=== PATIENT | male | born 1950 | race Two or more races ===

== ENCOUNTER → 2017-01-25 | Day surgery (SDC) | payer MEDICARE, MEDICAID ==
[~2017-01-25] VITALS: Ht 167.6 cm; Wt 93.0 kg
[2017-01-25] VITALS (9 sets, daily range): BP systolic 153–189; BP diastolic 85–103
[~2017-01-25] MED LIST: ASPIRIN81 MG ORAL; Atropine Inj 1mg/10ml Syr IV PRN; Bacitracin 50000 Units Vial ONE; DiphenhydrAMINE 50mg/ml Inj IVP PRN; Glycopyrrolate 0.2mg/ml 1ml Vial ONE; Hydromorphone 0.5mg/0.5ml inj IVP PRN; JANUMET 50-1,01 EACH ORAL; Ketamine 500mg Inj ONE; Ketorolac 30mg Inj IV PRN; Ketorolac 30mg Inj ONE; Ketorolac 60mg Inj IV PRN; LANTUS SOL100 UNIT/1 SUBQ; LORazepam Inj 2mg/ml 1ml IV PRN; LR 1000ml 1,000 ML IVLG SCH; LR 1000ml ONE; Labetalol 5mg/ml 20ml vial IV ONE; Labetalol 5mg/ml 20ml vial IV PRN; Lidocaine 1% MPF 10mg/ml 5ml ONE; Meperidine 25mg/ml Inj IV PRN; Metoclopramide 10mg/2ml Inj IVP PRN; Metoprolol 5mg/5ml Inj ONE; Midazolam 2mg/2ml Inj IVP PRN; Midazolam 2mg/2ml Inj ONE; NEXIUM40 M2 ORAL; NIFEDIPINE ER30 M2 ORAL; NS Irrig 1000ml ONE; Neostigmine 1mg/ml 10ml Inj ONE; Norco 5mg/325mg tab ORAL PRN; Norco 7.5mg/325mg tab ORAL PRN; Oxycodone/Acetaminophen 5-325 ORAL PRN; PROPRANOLOL HCL40 MG ORAL; Propofol 10mg/ml 20ml IV ONE; Sterile Water Irrig 1000ml IRRIG ONE; Vancomycin 1gm inj IVPB ONE; Zemuron 50mg/5ml Inj IV ONE; fentaNYL 100 mcg/2 mL IV PRN; fentaNYL 250mcg/5ml ONE
--- NOTE | 2017-01-25 09:12 | Pre-Procedure Note/Attestation ---
Pre-Procedure Note/Attestation Complete Prior to Procedure Planned Procedure: not applicable Procedure Narrative: placement of multicomponent penile prosthesis Indications for Procedure Pre-Operative Diagnosis: impotence Attestation I attest that I discussed the nature of the procedure; its benefits; risks and complications; and alternatives (and the risks and benefits of such alternatives ), prior to the procedure, with the patient (or the patient's legal tour sales representative). I attest that, if there was a reasonable possibility of needing a blood transfusion, the patient (or the patient's legal tour sales representative) was given the [facility] standardized written summary, pursuant to the Manuel Meena Blood Safety Act ([place] Health and Safety Code # 1645, as amended). I attest that I re-evaluated the patient just prior to the surgery and that there has been no change in the patient's H&P, except as documented below: Jhonny Styles MD Jan 25, 2017 09:11
--- NOTE | 2017-01-25 13:50 | Brief Operative Note ---
Immediate Post Operative Note Operative Note Pre-op Diagnosis: impotence Procedure: IPP Post-op Diagnosis: same Surgeon: Nirmal Styles Anesthesia: general Specimen: none Complications: none Condition: stable Estimated Blood Loss: minimal Implant(s) used?: Yes Jhonny Styles MD Jan 25, 2017 13:50
--- NOTE | 2017-01-25 14:53 | Anethesia Preoperative Eval ---
Anesthesia Pre-op PMH/ROS General Date of Evaluation: Jan 25, 2017 Time of Evaluation: 14:04 Anesthesiologist: Willa ASA Score: ASA 3 Mallampati Score Class I : Soft palate, uvula, fauces, pillars visible Class II: Soft palate, uvula, fauces visible Class III: Soft palate, base of uvula visible Class IV: Only hard plate visible Mallampati Classification: Class II Surgeon: Jensen Diagnosis: Impotence Surgical Procedure: Penile Implant Insertion Anesthesia History: none Family History: no anesthesia problems Allergies: Coded Allergies: No Known Allergies (Unverified , 01/24/17) Medications: see eMAR Past Medical History Cardiovascular: Reports: HTN Neurologic/Psychiatric: Reports: CVA Endocrine: Reports: DM Other: obesity - BMI 33 PSxH Narrative: TURP, Appendectomy Anesthesia Pre-op Phys. Exam Physician Exam Last Vital Signs Date Time Temp Pulse Resp B/P Pulse Ox O2 Delivery O2 Flow Rate FiO2 01/25/17 08:45 98.0 86 18 189/85 96 Room Air Constitutional: NAD Neurologic: CN 2-12 intact Cardiovascular: RRR Respiratory: CTA Gastrointestinal: S/NT/ND Airway Exam Mallampati Score: Class II MO: limited ROM: limited Teeth: intact Anesthesia Pre-op A/P Risk Assessment & Plan Assessment: ASA 3 Plan: GA, BIS, Glidescope Status Change Before Surgery: No Pre-Antibiotics Dru Gram Vancomycin, 80 mg Gentamicin Given Within 1 Hr of Incision: Yes Time Given: 14:16 Milton Crouch MD Jan 25, 2017 14:53
--- NOTE | 2017-01-25 14:56 | Immediate Post-Op Evaluation ---
Immediate Post-Op Evalulation Immediate Post-Op Evalulation Procedure: Insertion Penile Implant Date of Evaluation: Jan 25, 2017 Time of Evaluation: 15:55 IV Fluids: 1000 LR Blood Products: 0 Estimated Blood Loss: 25 Urinary Output: 100 Blood Pressure Systolic: 157 Blood Pressure Diastolic: 103 Pulse Rate: 87 Respiratory Rate: 16 O2 Sat by Pulse Oximetry: 100 Temperature (Fahrenheit): 98.4 Pain Score (1-10): 2 Nausea: No Vomiting: No Complications 0 Patient Status: awake, reacts, patent, extubated, none Hydration Status: adequate Dru Gram Vancomycin, 80 mg Gentamicin IV Given Within 1 Hr of Incision: Yes Time Given: 14:16 Milton Crouch MD Jan 25, 2017 14:56
--- NOTE | 2017-01-25 15:30 | 48 Hour Post Anesthesia Eval ---
Post Anesthesia Evaluation Procedure: Insertion Penile Implant Date of Evaluation: Jan 25, 2017 Time of Evaluation: 15:57 Blood Pressure Systolic: 171 0: 98 Pulse Rate: 78 Respiratory Rate: 18 Temperature (Fahrenheit): 98.6 O2 Sat by Pulse Oximetry: 97 Airway: patent Nausea: No Vomiting: No Pain Intensity: 2 Hydration Status: adequate Cardiopulmonary Status: Stable Mental Status/LOC: patient returned to baseline Follow-up Care/Observations: 0 Post-Anesthesia Complications: 0 Follow-up care needed: ready to discharge Milton Crouch MD Jan 25, 2017 15:30
--- NOTE | 2017-01-27 21:48 | Operative Note - Dictated ---
DATE OF OPERATION: 01/27/2017 PREOPERATIVE DIAGNOSIS: Organic impotence. POSTOPERATIVE DIAGNOSIS: Organic impotence. OPERATED BY: Jhonny Styles M.D. OPERATION PERFORMED: Implantation of inflatable penile prosthesis. ANESTHESIA: General findings. INDICATION FOR SURGERY: The patient was found with impotence and unresponsive to any treatments. Treatment options were explained to the patient and his family. He understands the nature of the procedure and signed a consent brought to the operating room, placed in supine position. Prepped and draped in standard fashion. Under general anesthesia, an incision was made and was mobilized on both sides of the urethra opened approximately 2.5 cm and dilated to 14-[place] with Hegar dilators. An 18 cm prosthesis with 3 cm closed with 2-0 Vicryl sutures. All position and copiously irrigated with triple antibiotics and then closed in three layers . The patient tolerated the procedure well. Sponge count and instrument count was correct. Jhonny Styles M.D. DR: JEANINE JOB#: [id number] CC:
== END | disposition home or self-care (01) ==
LOC: SUR 07:57
DX: N52.9 Male erectile dysfunction, unspecified (principal); N40.1 Benign prostatic hyperplasia with lower urinary tract symptoms; N39.46 Mixed incontinence; R35.1 Nocturia; R35.0 Frequency of micturition; I10 Essential (primary) hypertension; E11.9 Type 2 diabetes mellitus without complications; E66.9 Obesity, unspecified; Z68.33 Body mass index [BMI] 33.0-33.9, adult; E78.2 Mixed hyperlipidemia; Z90.79 Acquired absence of other genital organ(s); Z87.891 Personal history of nicotine dependence; Z79.84 Long term (current) use of oral hypoglycemic drugs; Z79.82 Long term (current) use of aspirin; Z79.899 Other long term (current) drug therapy; Z86.73 Personal history of transient ischemic attack (TIA), and cerebral infarction without residual deficits
CPT/HCPCS: 82962; 94003; 94150; J1580; J2250; J2405; J2710